=== PATIENT | male | born 1985 ===

== ENCOUNTER 2021-07-22 07:52 | Outpatient (CLI) | payer OTHER, SELFPAY ==
--- NOTE | 2021-07-27 15:52 | WPDSLEEPSTUD ---
Sleep Study Date of Study: 07/22/21 Ordering Provider: Diego Colby APRN Interpreting Physician: Maria G Aquino DO Sleep Study Type: Polysomnogram Height: 1.78 m Weight: 94.347 kg Body Mass Index: 29.8 Neck Circumference (inches): 16.5 [place]: 6 Reason for Sleep Study Unrefreshing sleep, daytime hypersomnia and loud snoring. Sleep History The patient is a 35-year-old male with anxiety, depression and seasonal allergies that had a sleep study ordered by the pulmonary group for evaluation sleep apnea. The patient denies awakening from sleep short of breath. He rarely awakens at night with heartburn, belching or cough. He constantly snores loud enough that others complain. Says he rarely has trouble sleeping when he has a cold. He denies waking up gasping for air throughout the night. He occasionally has breathing problems at night observed by others. He occasionally sweats excessively at night. He rarely notices heart palpitations or irregular heartbeats during the night. He occasionally falls asleep during the day but never while driving. He occasionally has trouble at work due to sleepiness. He denies sleep paralysis, cataplexy and hypnagogic / hypnopompic hallucinations. He rarely has nightmares. He frequently has thoughts racing through his mind. He occasionally feels sad, depressed and anxious. Frequently has muscular tension. He frequently notices parts of his body jerk. He frequently kicks during the night. He frequently has crawling and aching feelings in his legs. He occasionally has leg pain during the night. He denies grinding his teeth during sleep and awakening with morning jaw pain. He is occasionally bothered by pain during the day but never awakened by pain during the night. He frequently wakes up feeling stiff in the morning. He occasionally wakes up with sore or achy muscles. He occasionally wakes up with pain in the neck, spine and of the joints. He goes to bed between 9 and 10:00 p.m. on weekdays and between 11:00 p.m. and midnight on the weekends. It takes him 30-60 minutes to fall asleep. He wakes up once or twice throughout the night for unknown reasons. When he awakens, he will try to go back to sleep and change positions. He can fall back asleep within 5 minutes. He wakes up at 5:00 a.m. on weekdays and 6:00 a.m. on the weekends. He typically gets 6-8 hours of sleep per night. He will stay in bed for 5 minutes after waking up in the morning. He currently lives with his in 6 month old child. He denies consuming any caffeinated beverages within 2 hours of bedtime. He does not engage in physical exercise before bedtime. He will watch television before falling asleep. He will take naps in the afternoon or the evening but they are not refreshing. He will drink 2 caffeinated beverages per day. He will drink 1 alcoholic beverage per day. He denies tobacco and recreational drug use. [facility] Past Medical History Medical History Anxiety Depression Insomnia Family History Family History Mother Breast cancer Medications Home Medications Medication Instructions Recorded Confirmed Type cetirizine 10 mg capsule 10 mg PO DAILY PRN 11/17/20 11/17/20 History eszopiclone 3 mg tablet 3 mg PO QHS #1 tablet 11/17/20 11/17/20 Rx venlafaxine 150 mg 150 mg PO DAILY 11/17/20 11/17/20 History capsule,extended release 24 hr Sleep Procedure This test was performed using the [employer] multiple channel system including EOG, EEG, submental EMG, EKG, nasal and oral airflow using thermistors and nasal pressure sensors, chest and abdominal belts for body position data, and pulse oximetry. Video monitoring was also performed. The study was scored using [facility] guidelines. Sleep Architecture The patient has a total recording time of 489.5 minutes and total sleep time of 460.3 minutes.
[2021-07-27 16:04] VITALS: BMI 29.8
== END 2021-07-23 08:11 | disposition home or self-care (01) ==
PROVIDERS: Visit Provider Nurse Practitioner Family
DX: G47.10 Hypersomnia, unspecified (principal); G47.33 Obstructive sleep apnea (adult) (pediatric)
CPT/HCPCS: 95810

== ENCOUNTER 2021-11-16 08:05 | Outpatient (CLI) | payer OTHER, SELFPAY ==
--- NOTE | 2021-12-10 10:19 | WPDSLEEPSTUD ---
Sleep Study Date of Study: 11/16/21 Ordering Provider: Diego Colby APRN Interpreting Physician: Jayda Billy MD Sleep Study Type: CPAP Titration Height: 1.8 m Weight: 97.522 kg Body Mass Index: 29.9 Neck Circumference (inches): 17 [place]: 8 Reason for Sleep Study * 07/22/2021 basic nocturnal polysomnogram apnea-hypopnea index 17.9 and hypoxemia to 79%, patient presents for an in-lab titration. Sleep History Eyal Kapadia is a 36-year-old man who had a home sleep test July 22, 2021 with an AHI of 17.9 consistent with moderate obstructive sleep apnea with desaturation is 79%, oxygen desaturation index of 15.3 and 11 minutes or 2.3% of the total recording time with an oxygen saturation below 88%. He now presents for a CPAP titration. The patient denies awakening from sleep short of breath.? He rarely awakens at night with heartburn, belching or cough.? He constantly snores loud enough that others complain.? Says he rarely has trouble sleeping when he has a cold.? He denies waking up gasping for air throughout the night.? He occasionally has breathing problems at night observed by others.? He occasionally sweats excessively at night.? He rarely notices heart palpitations or irregular heartbeats during the night.? He occasionally falls asleep during the day but never while driving.? He occasionally has trouble at work due to sleepiness.? He denies sleep paralysis, cataplexy and hypnagogic / hypnopompic hallucinations.? He rarely has nightmares.? He frequently has thoughts racing through his mind.? He occasionally feels sad, depressed and anxious.? Frequently has muscular tension.? He frequently notices parts of his body jerk.??He frequently kicks during the night.? He frequently has crawling and aching feelings in his legs.? He occasionally has leg pain during the night.? He denies grinding his teeth during sleep and awakening with morning jaw pain.? He is occasionally bothered by pain during the day but never awakened by pain during the night.? He frequently wakes up feeling stiff in the morning.? He occasionally wakes up with sore or achy muscles.? He occasionally wakes up with pain in the neck, spine and of the joints.? Normal bedtime is between 9:00 p.m. and 10:00 p.m, later on weekends between 11:00 p.m. and midnight. It takes him 30-60 minutes to fall asleep.? He wakes up once or twice throughout the night for unknown reasons.? When he awakens, he will try to go back to sleep and change positions.? He can fall back asleep within 5 minutes.? He wakes up at 5:00 a.m. on weekdays and 6:00 a.m. on the weekends.? He typically gets 6-8 hours of sleep per night.?He takes naps in the afternoon or the evening but they are not refreshing.? Habits: No tobacco. Caffeine: 2 caffeinated beverages per day.? Alcohol: 1 alcoholic beverage per day.? No recreational drug use. [facility] Past Medical History Medical History (Updated 12/10/21 @ 10:24 by Jayda Billy MD) Anxiety Depression Insomnia Seasonal allergies Family History Family History Mother Breast cancer Social History Social History (Updated 12/10/21 @ 10:24 by Jayda Billy MD) Smoking status: Never smoker Alcohol intake: current Alcohol use details: 1 per day Substance use: never Living arrangements: with family Medications Home Medications Medication Instructions Recorded Confirmed Type cetirizine 10 mg capsule (Zyrtec) 10 mg PO DAILY PRN 11/17/20 11/17/20 History venlafaxine 150 mg 150 mg PO DAILY 11/17/20 11/17/20 History capsule,extended release 24 hr (Effexor XR) eszopiclone 3 mg tablet 3 mg PO QHS #1 tablet 08/07/21 Rx Sleep Procedure This test was performed using the [employer] multiple channel system including EOG, EEG, submental EMG, EKG, nasal and oral airflow using thermistors and nasal pressure sensors, chest and abdominal belts for body position data, and
[2021-12-10 10:54] VITALS: BMI 29.9
== END 2021-11-17 06:25 | disposition home or self-care (01) ==
LOC: ANHCSM 08:14
PROVIDERS: Visit Provider Nurse Practitioner Family
DX: G47.33 Obstructive sleep apnea (adult) (pediatric) (principal); Z68.30 Body mass index [BMI] 30.0-30.9, adult
CPT/HCPCS: 95811